=== PATIENT | male | born 1970 | race Caucasian/White ===

== ENCOUNTER → 2018-10-20 10:27 | Outpatient (CLI) | payer OTHER, MEDICAID, SELFPAY ==
--- NOTE | 2018-10-24 16:43 | PM.PFT.1 ---
Pulmonary Function Test Referral & Results Date Patient Seen: 10/20/18 Requesting provider: Job Sampson Results: The spirometry demonstrates an FVC of 5.03 L which is 101% of predicted. The FEV1 was measured at 2.68 L which is 69% of predicted. The FEV1/FVC ratio was 53 which is 68% of predicted. Following the administration of bronchodilator there was a 41% improvement in FEV1 and a 133% improvement in FEF 25-75%. Lung volumes show an SVC of 5.12 L which is 106% of predicted. The diffusing capacity was measured at 38.71 which is 124% of predicted. The maximum voluntary ventilation was normal Interpretation: This study demonstrates moderate obstructive lung disease with evidence of significant benefit following bronchodilator administration
== END ==
PROVIDERS: Visit Provider Student in an Organized Health Care Education/Training Program
DX: R06.09 Other forms of dyspnea (principal)
CPT/HCPCS: 94060; 94726; 94729